=== PATIENT | female | born 1985 | race Caucasian/White ===

== ENCOUNTER 2019-06-12 11:53 | Outpatient (RCR) | payer OTHER, SELFPAY ==
--- NOTE | 2019-06-19 11:26 | PC.NURSE ---
IN 1100 OUT 1150 HISTORY: Pt. delivered at term, infant had no complications after delivery. Mother had no complications after delivery. is now 7 days old. Infant appears to be well cared for. Infant has been seen by ICP as scheduled. last seen by ICP at 4 days of life. Mother reports: Mother began supplementing 10-15 mls of formula within the first day of life, was fussy after breastfeedings. became increasingly fussy with latch. Mother has been pumping each feeding and is now supplementing with EBM with in the last 24 hours. will now take 2-3 oz. each feeding, every three hours. Mother allows to show feeding cues before feeding. Mother has not put infant to breast for a few days, cries and does not latch. Infant will take up to 45 minutes to bottle feed 2-3 oz. Mother wishes: For infant to breastfeed and discontinue supplementation and pumping. Currently at 6 wets per day and 3-4 yellow seedy stools per day. weight: 7#4 Discharge weight: 6#14 Last Weight: 6#15 Pre feeding weight: 3447 Post feeding weight: 3482 OBSERVATION: Mother attempts infant to breast, is fussy and makes eager attempt to latch and will suckle for seconds and pull off crying. Reviewed positioning/alignment in cross cradle, holding breast in U hold and guided asymmetrical latch on. Several attempts made without latch. Offered and explained a nipple shield. Mother is willing to attempt feeding with shield. Discussed nipple shield precautions and possible complications. Instructions given on application and cleaning of shield. Patient able to return demonstration on proper application of shield. Discussed the need for regular pumping if infant continues to nurse with the shield. Discussed once is able to empty breast and continue to gain weight, pumping can be decreased then discontinued. With shield in place, was able to latch correctly within a few attempts. nursed eagerly, with steady draws and frequent swallowing noted. Reviewed signs of a correct latch, effective nursing and suck swallow ratio. was able to maintain latch without discomfort to mother. Nipple care reviewed. would slow nursing with long pausing noted. Advised to stimulate while feeding and breast compressions to continue steady milk flow. Infant responded with eager nursing. Mother was able to independently switch to other breast. Mother reports infant fed 2 hours before appointment and is not as awake and hungry as waiting 3 hours between feedings. Worked with infant on bottle feeding, suggested a different nipple type and to sit infant upright and give a little chin support with feeding. was sleepy during this attempt, he was able to have good rhythmic draws to bottle nipple. PLAN: Mother will follow above feeding plan using techniques for latch using the nipple shield. Mother will breastfeed on one breast, then supplement and pump. If is willing mother will allow to feed on both breasts per feeding, continuing to supplement and pump. Discussed a goal would be for to begin to take less from bottle and empty breasts each feeding. Once mother feels infant is satisfied at the breast, she can then discontinue supplementation and pumping. Mother will call with further questions or concerns. Follow phone call scheduled for 06-17-2019.
--- NOTE | 2019-06-20 11:00 | PC.NURSE ---
IN 1110 OUT 1145 HISTORY: 2nd OP visit for assist with . Mother reports: is more awake each feeding and is latching at times without nipple shield, is inconsistent with feeding effort. Freq. infant will nurse and appear to be satisfied and will wake within 1 hour rooting. Mother is pumping 4-6 oz each session. continues to require supplement of 2-4 oz after each feeding. Mother feels is Mother wishes: To mainly breastfeed so she can discontinue with pumping and supplementation. Currently at 6+ wets per day and 4-5 yellow seedy stools per day. Pre feeding weight: 3567 After right breast (20 min) 3605 After left breast(10 min) 3617 OBSERVATION: Mother is able to latch infant correctly in cross cradle, infant eagerly latches deeply nursing deeply with long draws and freq. swallowing noted. Infant pauses freq within the feeding, suggested mother stimulate and apply breast compressions to assist with milk flow. Infant will respond with bursts of vigorous nursing and then begin to pause. Discussed infant is more awake and vigorous this observation than previous. Advised to push to empty breast before switching, discussing hind milk which may be more satisfying to Mother is more aggressive to wake and stimulate during the feeding. Advised infant continues to require supplementation at this time. Mother could allow infant to feed more freq on demand, this may assist infant with being more vigorous at the breast. Mother will continue to supplement at this time. Mother states she will wait for infant to be more vigorous. PLAN: Mother will follow above feeding plan using techniques to keep awake and nursing effectively, emptying one breast each feeding. Advised to put to both breasts per feeding before supplementing. Stressed to keep infant awake with stimulation and breast compressions to assist with milk flow. Mother will call with further questions or concerns.
== END 2019-07-04 10:45 | disposition home or self-care (01) ==
LOC: ANHOBOP 11:53
PROVIDERS: PCP Pediatrics; Visit Provider Pediatrics
DX: Z39.1 Encounter for care and examination of lactating mother (principal)
CPT/HCPCS: 99202; G0463